=== PATIENT | male | born 1995 | race Two or more races ===

== ENCOUNTER 2016-06-22 16:10 | Inpatient (IN) | payer OTHER ==
[2016-06-22 16:15] VITALS: BMI 32.7
[2016-06-22] MEDS ORDERED: KETOROLAC TROMETHAMINE 30 MG/1 ML VIAL IVPUSH ONE ×2 (17:09→22:15)
[2016-06-22] MEDS ORDERED: SODIUM CHLORIDE 1,000 ML IV STA (17:09)
[2016-06-22] MEDS ORDERED: KETOROLAC TROMETHAMINE 30 MG/1 ML VIAL ONE (17:14)
[2016-06-22 17:36] LABS: BASOPHIL 0.7 % (0-2.0); EOSINOPHIL 0.4 % (0-4.5); MCHC 32.5 g/dl (32.0-35.9); MEAN CELL VOLUME 86.3 fl (80-96); MEAN PLT VOLUME 7.3 fl (7.5-11.1); NEUTROPHILS 80.3 % (42.8-82.8); PLATELET COUNT 345 K/MM3 (134-434); RDW 13.4 % (11.9-15.9); WHITE BLOOD COUNT 17.2 K/mm3 (4.0-10.0)
--- NOTE | 2016-06-22 17:48 | PDOC ---
History of Present Illness - General Chief Complaint: Pain Stated Complaint: STOMACH PAIN Time Seen by Provider: 06/22/16 16:57 History Source: Patient - History of Present Illness Travel History: No Initial Comments: 06/22/16 17:28 21-year-old male presents to the ED with complaints of generalized abdominal cramping without fever, chills, nausea vomiting diarrhea or dysuria. Patient states pain began this morning and is greater in the lower quadrants. Patient states had a bowel movement today with no relief of discomfort. Patient denies recent travel, recent illness, recent sick contacts, drug use, alcohol use, or GI disorders. Timing/Duration: reports: constant Quality: reports: moderate, cramping Abdominal Pain Onset Location: reports: RLQ, LLQ Pain Radiation: reports: epigastric Activities at Onset: reports: none Aggravating Factors: improves with: None Alleviating Factors: improves with: None Past History - Past Medical History Allergies/Adverse Reactions: Allergies Allergy/AdvReac Type Severity Reaction Status Date / Time No Known Allergies Allergy Verified 06/22/16 16:15 Home Medications: Ambulatory Orders Oxycodone HCl/Acetaminophen [Percocet 5-325 mg Tablet] 1 tab PO Q4H PRN #30 tablet MDD 6 tabs 06/23/16 Other medical history: denies - Psycho/Social/Smoking Cessation Hx Suicidal Ideation: No Smoking History: Never smoked Information on smoking cessation initiated: No Hx Alcohol Use: No Drug/Substance Use Hx: No Substance Use Type: None Patient Lives Alone: No Lives with/in: parents Review of Systems - Review of Systems Able to Perform ROS?: Yes Constitutional: No: Symptoms Reported HEENTM: No: Symptoms Reported Respiratory: No: Symptoms reported Cardiac (ROS): No: Symptoms Reported ABD/GI: Yes: Abdominal cramping : No: Symptoms Reported Musculoskeletal: No: Symptoms Reported Integumentary: No: Symptoms Reported Neurological: No: Symptoms reported Hematologic/Lymphatic: No: Symptoms Reported *Physical Exam - Vital Signs Last Vital Signs Temp Pulse Resp BP Pulse Ox 97.9 F 80 18 144/79 97 06/22/16 16:13 06/22/16 16:13 06/22/16 16:13 06/22/16 16:13 06/22/16 16:13 - Physical Exam General Appearance: Yes: Nourished, Appropriately Dressed. No: Apparent Distress HEENT: negative: Pale Conjunctivae Neck: positive: Supple Respiratory/Chest: positive: Lungs Clear, Normal Breath Sounds. negative: Respiratory Distress, Accessory Muscle Use Cardiovascular: positive: Regular Rhythm, Regular Rate. negative: Murmur Gastrointestinal/Abdominal: positive: Normal Bowel Sounds, Soft, Tenderness (rt lower quadrant and left lower quadrant). negative: Distended, Guarding, Rebound Musculoskeletal: negative: CVA Tenderness Extremity: positive: Normal Capillary Refill Integumentary: positive: Normal Color, Warm, Moist Neurologic: positive: Motor Strength 5/5 (ambulatory) ED Treatment Course - LABORATORY CBC & Chemistry Diagram: 06/23/16 07:00 06/23/16 07:00 - ADDITIONAL ORDERS Additional order review: 06/22/16 17:22 RBC 5.57 MCV 86.3 MCHC 32.5 RDW 13.4 MPV 7.3 L Neutrophils % 80.3 Lymphocytes % 12.2 Monocytes % 6.4 Eosinophils % 0.4 Basophils % 0.7 - Medications Given in the ED: ED Medications Discontinued Medications Generic Name Dose Route Start Last Admin Trade Name Freq PRN Reason Stop Dose Admin Ketorolac Tromethamine 30 mg 06/22/16 17:09 06/22/16 17:25 Toradol Injection - IVPUSH 06/22/16 17:10 30 mg ONCE ONE Administration Medical Decision Making - Medical Decision Making 06/22/16 17:50 Patient with 2 days of lower abdominal cramping without associated symptoms such as diarrhea dysuria nausea, diarrhea, or fever. Patient examined lower quadrant tenderness but negative for psoas, obturator sign and rosving. To patient's focality of discomfort patient has been ordered for CBC, comp, lactic acid, lipase, urine and IV fluids with Toradol. Depending on labs and reexam patient may have imaging including a CT *DC/Admit/Observation/Transfer Diagnosis at time of Disposition: Acute appendicitis - Discharge Dispostion Condition at time of disposition: Improved - Prescriptions
[2016-06-22 18:02] LABS: ALBUMIN 4.9 g/dl (3.4-5.0); ANION GAP 10 (8-16); CALCIUM 9.7 mg/dL (8.5-10.1); CO2 27 mmol/L (21-32); CREATININE 1.1 mg/dL (0.7-1.3); GLUCOSE,RANDOM 85 mg/dL (74-106); SGOT/AST 29 U/L (15-37); SGPT/ALT 48 U/L (12-78)
[2016-06-22 18:05] LABS: ALK PHOS 86 U/L (45-117); BILIRUBIN,TOTAL 0.8 mg/dL (0.2-1.0); TOT PROT 8.3 g/dl (6.4-8.2)
--- NOTE | 2016-06-22 18:33 | PDOC ---
*Physical Exam - Vital Signs Last Vital Signs Temp Pulse Resp BP Pulse Ox 97.9 F 80 18 144/79 97 06/22/16 16:13 06/22/16 16:13 06/22/16 16:13 06/22/16 16:13 06/22/16 16:13 - Physical Exam Comments: 06/22/16 18:32 Afebrile. Soft and nondistended. Lower abdominal discomfort to palpation greatest in the right lower quadrant, some rebound but no guarding. ED Treatment Course - LABORATORY CBC & Chemistry Diagram: 06/22/16 17:22 06/22/16 17:22 - ADDITIONAL ORDERS Additional order review: Laboratory Results 06/22/16 06/22/16 17:22 17:22 Sodium 139 Potassium 4.3 Chloride 102 Carbon Dioxide 27 Anion Gap 10 BUN 14 Creatinine 1.1 Creat Clearance w eGFR > 60 Random Glucose 85 Lactic Acid 1.078 Calcium 9.7 Total Bilirubin 0.8 AST 29 ALT 48 Alkaline Phosphatase 86 Total Protein 8.3 H Albumin 4.9 Lipase 72 L 06/22/16 17:22 RBC 5.57 MCV 86.3 MCHC 32.5 RDW 13.4 MPV 7.3 L Neutrophils % 80.3 Lymphocytes % 12.2 Monocytes % 6.4 Eosinophils % 0.4 Basophils % 0.7 - Medications Given in the ED: ED Medications Discontinued Medications Generic Name Dose Route Start Last Admin Trade Name Freq PRN Reason Stop Dose Admin Sodium Chloride 1,000 mls @ 1,000 mls/hr 06/22/16 17:09 06/22/16 17:25 Normal Saline - IV 06/22/16 18:08 1,000 mls/hr ASDIR STA Administration Ketorolac Tromethamine 30 mg 06/22/16 17:09 06/22/16 17:25 Toradol Injection - IVPUSH 06/22/16 17:10 30 mg ONCE ONE Administration Medical Decision Making - Medical Decision Making 06/22/16 18:32 Patient seen and evaluated with the nurse practitioner. I agree with the overall evaluation, assessment, and management with the following summary of visit: 21-year-old male with persistent lower abdominal pain since 3 AM, no associated fever/nausea/vomiting/diarrhea/urinary complaints. Exam localized somewhat to the right lower quadrant, leukocytosis of 17. Will check CTAP to rule out appendicitis/diverticulitis/colitis, agree with remainder of management as outlined. *DC/Admit/Observation/Transfer Diagnosis at time of Disposition: Acute appendicitis Qualifiers: Acute appendicitis type: unspecified acute appendicitis type Qualified Code(s) : K35.80 - Unspecified acute appendicitis - Discharge Dispostion Condition at time of disposition: Guarded
[2016-06-22 18:44] LABS: URINE APPEARANCE CLOUDY; URINE BILIRUBIN NEGATIVE (NEGATIVE); URINE BLOOD 1+ (NEGATIVE); URINE COLOR YELLOW; URINE GLUCOSE (UA) NEGATIVE (NEGATIVE); URINE KETONE NEGATIVE (NEGATIVE); URINE LEUK ESTERASE NEGATIVE (NEGATIVE); URINE NITRITE NEGATIVE (NEGATIVE); URINE PROTEIN 1+ (NEGATIVE); URINE UROBILINOGEN NEGATIVE E.U./dl (0.2-1.0)
[2016-06-22 18:48] LABS: URINE BACTERIA RARE /hpf (NONE SEEN); URINE MUCUS MODERATE; URINE RBC 8 /hpf (0-3); URINE WBC 2 /hpf (3-5)
[2016-06-22] MEDS ORDERED: CEFAZOLIN 1 GM/D5W 50 ML IVPB ONE (20:04)
[2016-06-22] MEDS ORDERED: CEFAZOLIN (PRE-DOCKED) 50 ML IVPB ONE (20:08)
--- NOTE | 2016-06-22 20:12 | PDOC ---
*Physical Exam - Vital Signs Last Vital Signs Temp Pulse Resp BP Pulse Ox 97.9 F 80 18 144/79 97 06/22/16 16:13 06/22/16 16:13 06/22/16 16:13 06/22/16 16:13 06/22/16 16:13 ED Treatment Course - LABORATORY CBC & Chemistry Diagram: 06/22/16 17:22 06/22/16 17:22 - ADDITIONAL ORDERS Additional order review: Laboratory Results 06/22/16 06/22/16 06/22/16 17:22 17:22 17:10 Sodium 139 Potassium 4.3 Chloride 102 Carbon Dioxide 27 Anion Gap 10 BUN 14 Creatinine 1.1 Creat Clearance w eGFR > 60 Random Glucose 85 Lactic Acid 1.078 Calcium 9.7 Total Bilirubin 0.8 AST 29 ALT 48 Alkaline Phosphatase 86 Total Protein 8.3 H Albumin 4.9 Lipase 72 L Urine Color Yellow Urine Appearance Cloudy Urine pH 5.0 Ur Specific [place] 1.027 Urine Protein 1+ H Urine Glucose (UA) Negative Urine Ketones Negative Urine Blood 1+ H Urine Nitrite Negative Urine Bilirubin Negative Urine Urobilinogen Negative Ur Leukocyte Esterase Negative Urine RBC 8 Urine WBC 2 Urine Bacteria Rare Urine Mucus Moderate 06/22/16 17:22 RBC 5.57 MCV 86.3 MCHC 32.5 RDW 13.4 MPV 7.3 L Neutrophils % 80.3 Lymphocytes % 12.2 Monocytes % 6.4 Eosinophils % 0.4 Basophils % 0.7 - RADIOLOGY Radiograph Interpretation: 06/22/16 20:10 COMPARISON: None Findings: Moderate hepatosplenomegaly. The gallbladder, pancreas, and adrenal glands are unremarkable. No renal or urinary calculi. No AAA. *Dilatation of the appendix measuring up to 14 mm in diameter with appendicoliths and subtle edema, compatible with appendicitis. No evidence for perforation or abscess at this time. No evidence for acute diverticulitis, small bowel obstruction, free pelvic fluid , or free air. THIS DOCUMENT HAS BEEN ELECTRONICALLY SIGNED Chilo Harden MD - Medications Given in the ED: ED Medications Discontinued Medications Generic Name Dose Route Start Last Admin Trade Name Freq PRN Reason Stop Dose Admin Sodium Chloride 1,000 mls @ 1,000 mls/hr 06/22/16 17:09 06/22/16 17:25 Normal Saline - IV 06/22/16 18:08 1,000 mls/hr ASDIR STA Administration Ketorolac Tromethamine 30 mg 06/22/16 17:09 06/22/16 17:25 Toradol Injection - IVPUSH 06/22/16 17:10 30 mg ONCE ONE Administration Medical Decision Making - Medical Decision Making 06/22/16 20:00: Spoke to Dr. Murillo/Surgery wound care center consultant [phone] Will bring to the OR in the am/ pt is stable Req that we admit to Hospitalist Anc 1gm ordered Hospitalist called *DC/Admit/Observation/Transfer Diagnosis at time of Disposition: Acute appendicitis Qualifiers: Acute appendicitis type: unspecified acute appendicitis type Qualified Code(s) : K35.80 - Unspecified acute appendicitis - Discharge Dispostion Condition at time of disposition: Guarded Admit: Yes
--- NOTE | 2016-06-22 21:45 | HP ---
CHIEF COMPLAINT:"my stomach is killing me" PCP: unknown HISTORY OF PRESENT ILLNESS: This is a previously healthy 21 yo M with no PMH, who presents to ED due to new onset abdominal pain. Patient states that he woke up at 3 am from severe 9/10, sharp, diffuse abdominal pain, that is worse in the RLQ and had no aggravating or alleviating factors. He has never had this pain before. He has not been able to eat but tolerated some liquids. His last BM was today and was normal, brown, nonmelenous, w/o blood. He denies f/c, n/v, diarrhea, constipation, h/a, chest pain or sob. 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 Smoking: denies Alcohol: 1 drink/week Drugs: denies Family History: htn, hld Allergies No Known Allergies Allergy (Verified 06/22/16 16:15) HOME MEDICATIONS: Medication Instructions Recorded NK [No Known Home Medication] 06/22/16 REVIEW OF SYSTEMS CONSTITUTIONAL: Absent: fever, chills, diaphoresis, generalized weakness, malaise HEENT: Absent: difficulty swallowing, mouth swelling CARDIOVASCULAR: Absent: chest pain, syncope, palpitations, lightheadedness, peripheral edema RESPIRATORY: Absent: cough, shortness of breath GASTROINTESTINAL: Absent: nausea, vomiting, diarrhea, constipation, melena, hematochezia GENITOURINARY: Absent: dysuria MUSCULOSKELETAL: Absent: back pain, neck pain SKIN: Absent: rash, itching HEMATOLOGIC/IMMUNOLOGIC: Absent: easy bleeding, easy bruising, frequent infections ENDOCRINE: Absent: unexplained weight gain, unexplained weight loss NEUROLOGIC: Absent: headache, focal weakness or paresthesias, mental status changes PSYCHIATRIC: Absent: anxiety, depression PHYSICAL EXAMINATION Vital Signs - 24 hr 06/22/16 06/22/16 16:13 20:31 Temperature 97.9 F Pulse Rate 80 Pulse Rate [ 63 Radial] Respiratory 18 18 Rate Blood Pressure 144/79 Blood Pressure 126/59 [Left Arm] O2 Sat by Pulse 97 100 Oximetry (%) GENERAL: Awake, alert, and fully oriented, in no acute distress. HEAD: Normal with no signs of trauma. EYES: Pupils equal, round and reactive to light, extraocular movements intact, sclera anicteric, conjunctiva clear. EARS, NOSE, THROAT: Moist mucous membranes. NECK: supple without lymphadenopathy, JVD, or masses. LUNGS: Breath sounds equal, clear to auscultation bilaterally. HEART: Regular rate and rhythm, normal S1 and S2 ABDOMEN: soft, diffusely tender, + rovsing + mcburneys, no guarding MUSCULOSKELETAL: No CVA tenderness. UPPER EXTREMITIES: 2+ pulses, warm, well-perfused. No peripheral edema. LOWER EXTREMITIES: 2+ pulses, warm, well-perfused. No calf tenderness. No peripheral edema. NEUROLOGICAL: Cranial nerves II-XII grossly intact. Normal speech. PSYCHIATRIC: Cooperative. Good eye contact. Appropriate mood and affect. SKIN: Warm, dry Laboratory Results - last 24 hr 06/22/16 06/22/16 06/22/16 17:10 17:22 17:22 WBC 17.2 H RBC 5.57 Hgb 15.6 Hct 48.1 MCV 86.3 MCHC 32.5 RDW 13.4 Plt Count 345 MPV 7.3 L Neutrophils % 80.3 Lymphocytes % 12.2 Monocytes % 6.4 Eosinophils % 0.4 Basophils % 0.7 Sodium 139 Potassium 4.3 Chloride 102 Carbon Dioxide 27 Anion Gap 10 BUN 14 Creatinine 1.1 Creat Clearance w eGFR > 60 Random Glucose 85 Lactic Acid Calcium 9.7 Total Bilirubin 0.8 AST 29 ALT 48 Alkaline Phosphatase 86 Total Protein 8.3 H Albumin 4.9 Lipase 72 L Urine Color Yellow Urine Appearance Cloudy Urine pH 5.0 Ur Specific [place] 1.027 Urine Protein 1+ H Urine Glucose (UA) Negative Urine Ketones Negative Urine Blood 1+ H Urine Nitrite Negative Urine Bilirubin Negative Urine Urobilinogen Negative Ur Leukocyte Esterase Negative Urine RBC 8 Urine WBC 2 Urine Bacteria Rare Urine Mucus Moderate 06/22/16 17:22 WBC RBC Hgb Hct MCV MCHC RDW Plt Count MPV Neutrophils % Lymphocytes % Monocytes % Eosinophils % Basophils % Sodium Potassium Chloride Carbon Dioxide Anion Gap BUN Creatinine Creat Clearance w eGFR Random Glucose Lactic Acid 1.078 Calcium Total Bilirubin AST ALT Alkaline Phosphatase Total Protein Albumin Lipase Urine Color Urine Appearance Urine pH Ur Specific [place] Urine Protein Urine Glucose (UA) Urine Ketones Urine Blood Urine Nitrite Urine Bilirubin Urine Urobilinogen Ur Leukocyte Esterase Urine RBC Urine WBC Urine Bacteria Urine Mucus ASSESSMENT/PLAN: This is a previously healthy 21 yo M with no PMH, who presents to ED due to new onset abdominal pain. CT abd: acute appendicitis w/o evidence of abscess or rupture Acute appendicitis w/o evidence or rupture or abscess -no sepsis -leukocytosis 17.2 -hepatic panel wnl -IV hydration -s/p cefazolin in ED; start on Rocephin, flagyl -NPO -type/screen -PT/INR -AM labs -surgery on board; possible lap appe tomorrow AM -morphine 2 gm PRN pain management FEN LR @ 125 lytes stable DVT GI PPH: hold a/c p/d possible cassie; SCD, early amb, PPI IV NPO Dispo: admit to med surge Problem List - Problem (1) Acute appendicitis Code(s): K35.80 - UNSPECIFIED ACUTE APPENDICITIS Qualifiers: Acute appendicitis type: unspecified acute appendicitis type Qualified Code(s): K35.80 - Unspecified acute appendicitis (2) Lower abdominal pain Code(s): R10.30 - LOWER ABDOMINAL PAIN, UNSPECIFIED Visit type - Emergency Visit Emergency Visit: Yes ED Registration Date: 06/22/16 Care time: The patient presented to the Emergency Department on the above date and was hospitalized for further evaluation of their emergent condition. - New Patient This patient is new to me today: Yes Date on this admission: 06/23/16 - Critical Care Critical Care patient: No
--- NOTE | 2016-06-22 21:50 | PN ---
<SaraAyush - Last Filed: 06/22/16 21:50> Teaching Attending Note ATTENDING PHYSICIAN STATEMENT I saw and evaluated the patient. I reviewed the resident's note and discussed the case with the resident. I agree with the resident's findings and plan as documented. SUBJECTIVE: OBJECTIVE: ASSESSMENT AND PLAN: <Joshua Padgett - Last Filed: 06/23/16 00:13> Teaching Attending Note Name of Resident: Sindy Bonds ATTENDING PHYSICIAN STATEMENT I saw and evaluated the patient. I reviewed the resident's note and discussed the case with the resident. I agree with the resident's findings and plan as documented. SUBJECTIVE: 21 year old male, with past medical history of kidney stones, who presents to the ED with generalized abdominal pain, with more severity in the right lower quadrant for 1 days, rates it a 10/10 in severity which decreased to 2/10 after pain medications. Denies any fevers, diarrhea, cough, dysuria, back pain, nausea or vomiting. He notes that he has not been able to eat all day. He also notes that he was able to ambulate. OBJECTIVE: Vitals: Afebrile Heart rate: 80 bpm BP: 126/59 GENERAL: Awake, alert, and fully oriented, in no acute distress HEENT: Atraumatic. PERRLA, EOMI. Moist mucosa. No JVD LUNGS: No distress, speaks full sentences, clear to auscultation bilaterally HEART: Regular rate and rhythm, normal S1 and S2, no murmurs, rubs or gallops, peripheral pulses normal and equal bilaterally. ABDOMEN: +Right lower quadrant tenderness. Positive rebound. Soft, decreased bowel sounds. No masses. EXTREMITIES: Normal inspection, Normal range of motion, no edema. No clubbing or cyanosis. NEUROLOGICAL: Normal speech SKIN: Warm, Dry, normal turgor, no rashes or lesions noted. CBCD WBC 17.2 K/mm3 (4.0-10.0) H 06/22/16 17:22 RBC 5.57 M/mm3 (4.00-5.60) 06/22/16 17:22 Hgb 15.6 GM/dL (11.7-16.9) 06/22/16 17:22 Hct 48.1 % (35.4-49) 06/22/16 17:22 MCV 86.3 fl (80-96) 06/22/16 17:22 MCHC 32.5 g/dl (32.0-35.9) 06/22/16 17:22 RDW 13.4 % (11.9-15.9) 06/22/16 17:22 Plt Count 345 K/MM3 (134-434) 06/22/16 17:22 MPV 7.3 fl (7.5-11.1) L 06/22/16 17:22 CMP Sodium 139 mmol/L (136-145) 06/22/16 17:22 Potassium 4.3 mmol/L (3.5-5.1) 06/22/16 17:22 Chloride 102 mmol/L (98-107) 06/22/16 17:22 Carbon Dioxide 27 mmol/L (21-32) 06/22/16 17:22 Anion Gap 10 (8-16) 06/22/16 17:22 BUN 14 mg/dL (7-18) 06/22/16 17:22 Creatinine 1.1 mg/dL (0.7-1.3) 06/22/16 17:22 Creat Clearance w eGFR > 60 (>60) 06/22/16 17:22 Calcium 9.7 mg/dL (8.5-10.1) 06/22/16 17:22 Total Bilirubin 0.8 mg/dL (0.2-1.0) 06/22/16 17:22 AST 29 U/L (15-37) 06/22/16 17:22 ALT 48 U/L (12-78) 06/22/16 17:22 Alkaline Phosphatase 86 U/L (45-117) 06/22/16 17:22 Total Protein 8.3 g/dl (6.4-8.2) H 06/22/16 17:22 Albumin 4.9 g/dl (3.4-5.0) 06/22/16 17:22 CT abdomen and pelvis with contrast Impression: Moderate hepatosplenomegaly. The gallbladder, pancreas, and adrenal glands are unremarkable. No renal or urinary calculi. No AAA. *Dilatation of the appendix measuring up to 14 mm in diameter with appendicoliths and subtle edema, compatible with appendicitis. No evidence for perforation or abscess at this time. No evidence for acute diverticulitis, small bowel obstruction, free pelvic fluid, or free air. ASSESSMENT AND PLAN: 1. Acute appendicitis, without evidence of perforation or abscess, with leukocytosis - IVF hydration - NPO - Pain control 2 mg morphine Q6 hours PRN - 2 sets of blood cultures - IV antibiotics; Ceftriaxone 2 grams Q 24 hours, metronidazole 50 mg Q 8 hours IV - Surgery follow up in the AM for possible intervention DVT prophylaxis low risk of DVT, can ambulate for DVT prophylaxis Documentation prepared by Joshua Padgett, acting as medical physics professor for Ayush Ruiz MD.
[2016-06-22] MEDS ORDERED: LACTATED RINGERS SOLUTION 1,000 ML IV SCH (22:15)
[2016-06-22] MEDS ORDERED: morphine CARPU-JECT 2 MG/1 ML DISP.SYRIN IVPUSH PRN (22:26)
[2016-06-22] MEDS ORDERED: CEFTRIAXONE 100 ML IVPB ONE (23:44)
[2016-06-23] MEDS: METRONIDAZOLE 500 MG PREMIXED 100 ML IVPB SCH ×3 (00:51→11:29)
[2016-06-23] MEDS: morphine CARPU-JECT 2 MG/1 ML DISP.SYRIN IVPUSH PRN ×2 (01:44→05:52)
[2016-06-23 01:49] LABS: INR 1.17 (0.82-1.09); PROTHROMBIN TIME (PATIENT) 12.9 SEC (9.98-11.88)
[2016-06-23] MEDS ORDERED: morphine CARPU-JECT 2 MG/1 ML DISP.SYRIN IVPUSH ONE (03:59)
[2016-06-23] MEDS ORDERED: CEFTRIAXONE 100 ML IVPB ONE (05:00)
[2016-06-23 08:09] LABS: MCH 29.4 pg (25.7-33.7); MCHC 33.9 g/dl (32.0-35.9); MEAN CELL VOLUME 86.5 fl (80-96); MEAN PLT VOLUME 7.1 fl (7.5-11.1); PLATELET COUNT 294 K/MM3 (134-434); RDW 13.4 % (11.9-15.9); WHITE BLOOD COUNT 17.5 K/mm3 (4.0-10.0)
[2016-06-23 08:31] LABS: ALBUMIN 4.3 g/dl (3.4-5.0); ANION GAP 8 (8-16); CALCIUM 9.2 mg/dL (8.5-10.1); CO2 27 mmol/L (21-32); GLUCOSE,RANDOM 99 mg/dL (74-106)
[2016-06-23] MEDS ORDERED: BUPIVACAINE HCL/PF 0.5% (5MG/ML) 10 ML VIAL ONE (08:33)
[2016-06-23] MEDS ORDERED: HYDROmorphone HCL CARPU-JECT 2 MG/1 ML DISP.SYRIN IVPUSH PRN (08:34)
[2016-06-23] MEDS ORDERED: ONDANSETRON 4 MG/2 ML VIAL IVPUSH PRN ×2 (08:34→10:18)
[2016-06-23 08:35] LABS: ALK PHOS 83 U/L (45-117); BILIRUBIN,TOTAL 1.1 mg/dL (0.2-1.0); CREATININE 1.1 mg/dL (0.7-1.3); PHOSPHOROUS 2.8 mg/dL (2.5-4.9); SGOT/AST 18 U/L (15-37); SGPT/ALT 37 U/L (12-78); TOT PROT 7.4 g/dl (6.4-8.2)
[2016-06-23] MEDS ORDERED: MIDAZOLAM HCL 2 MG/2 ML SINGLE DOSE VIAL ONE (08:40)
[2016-06-23] MEDS ORDERED: LIDOCAINE HCL/PF 2% SDV 5ML VIAL ONE (08:41)
[2016-06-23] MEDS ORDERED: PROPOFOL 20 ML ONE (08:41)
[2016-06-23] MEDS ORDERED: ROCURONIUM BROMIDE 50 MG/5 ML VIAL ONE (08:42)
[2016-06-23] MEDS ORDERED: DEXAMETHASONE SOD PHOSPHATE 4 MG/1 ML VIAL ONE ×2 (08:43→09:46)
[2016-06-23] MEDS ORDERED: BUPIVACAINE HCL/PF 0.5% (5MG/ML) 10 ML VIAL IJ ONE (09:45)
[2016-06-23] MEDS ORDERED: ONDANSETRON 4 MG/2 ML VIAL ONE (09:46)
[2016-06-23] MEDS ORDERED: NEOSTIGMINE METHYLSULFATE 0.5 MG/ML - 10 ML MDV ONE (09:48)
[2016-06-23] MEDS ORDERED: GLYCOPYRROLATE 0.2 MG/1 ML VIAL ONE (09:48)
--- NOTE | 2016-06-23 09:56 | CONSULT ---
Consult Consult Specialty:: surgery Reason for Consultation:: appendicitis - History of Present Illness Chief Complaint: rlq pain History of Present Illness: pt with rlq pain x 1 day. came to ER and workup reveals leukocytosis to [address] showing appendicitis. never had symptoms like this before. - History Source History Provided By: Patient Limitations to Obtaining History: No Limitations - Alcohol/Substance Use Hx Alcohol Use: No - Smoking History Smoking history: Current some day smoker Have you smoked in the past 12 months: Yes Home Medications - Allergies Allergies/Adverse Reactions: Allergies Allergy/AdvReac Type Severity Reaction Status Date / Time No Known Allergies Allergy Verified 06/22/16 16:15 - Home Medications Home Medications: Ambulatory Orders NK [No Known Home Medication] 06/22/16 Review of Systems - Review of Systems Constitutional: denies: Chills, Fever Eyes: denies: Blind Spots, Recent Change in Vision HENT: denies: Difficult Swallowing, Ear Discharge Neck: denies: Decreased ROM, Lumps Cardiovascular: denies: Chest Pain, Edema Respiratory: denies: Cough, Exercise Intolerance Gastrointestinal: reports: Abdominal Pain. denies: Melena Genitourinary: denies: Burning, Discharge Breasts: denies: Pain, Skin Changes Musculoskeletal: denies: Back Pain, Crepitus Integumentary: denies: Blister, Bruising Neurological: denies: Change in LOC, Change in Speech Endocrine: denies: Excessive Sweating, Flushing Hematology/Lymphatic: denies: Easily Bruised, Excessive Bleeding Psychiatric: denies: Altered Sleep Pattern, Anxiety Physical Exam Vital Signs: Vital Signs Temperature 98.8 F 06/23/16 06:24 Pulse Rate 88 06/23/16 06:24 Respiratory Rate 19 06/23/16 06:24 Blood Pressure 136/70 06/23/16 06:24 O2 Sat by Pulse Oximetry (%) 95 06/22/16 21:55 Constitutional: Yes: No Distress, Calm Eyes: Yes: Conjunctiva Clear, EOM Intact HENT: Yes: Atraumatic, Normocephalic Neck: Yes: Supple, Trachea Midline Cardiovascular: Yes: Regular Rate and Rhythm Respiratory: Yes: Regular, CTA Bilaterally Gastrointestinal: Yes: Soft, Tenderness (rlq with some guarding). No: Distention ...Rectal Exam: Yes: Deferred Renal/: No: CVA Tenderness - Left, CVA Tenderness - Right Breast(s): No: Mass, Nipple Inversion Musculoskeletal: No: Joint Stiffness, Joint Swelling Extremities: No: Calf Tenderness, Erythema Integumentary: No: Erythema, Rash Neurological: Yes: Alert, Oriented Psychiatric: Yes: Alert, Oriented Labs: CBC, BMP 06/23/16 07:00 06/23/16 07:00 Imaging - Results Cat Scan: Report Reviewed, Image Reviewed Problem List - Problems (1) Acute appendicitis Assessment/Plan: for lap appy. r/b/a d/w pt. he understands and agrees can likely go home with rx for percocet today if his pain controlled and he voids and tolerates liquids. f/u with me in 1-2 weeks [phone] no heavy lifting x 30 lbs x 3 weeks can shower tomorrow Code(s): K35.80 - UNSPECIFIED ACUTE APPENDICITIS Qualifiers: Acute appendicitis type: unspecified acute appendicitis type Qualified Code(s): K35.80 - Unspecified acute appendicitis
[2016-06-23] MEDS ORDERED: PANTOPRAZOLE 20 MG TABLET (FP) PO SCH (10:00)
[2016-06-23] MEDS ORDERED: PANTOPRAZOLE SODIUM 100 ML IVPB SCH (10:00)
[2016-06-23] MEDS ORDERED: OXYCODONE/APAP 5/325MG COMBO TABLET PO PRN ×3 (10:01→10:09)
[2016-06-23] MEDS ORDERED: LACTATED RINGERS SOLUTION 1,000 ML IV SCH (10:01)
--- NOTE | 2016-06-23 10:05 | OP ---
Operative Note - Note: Operative Date: 06/23/16 Pre-Operative Diagnosis: appendicitis Operation: lap appendectomy Findings: appendicits Post-Operative Diagnosis: Same as Pre-op Surgeon: Guero Lazar Anesthesia: General Estimated Blood Loss (mls): 5 Operative Report Dictated: Yes
[2016-06-23 11:26] VITALS: TEMP 99.1
[2016-06-23 11:39] VITALS: BP 139/77; PULSE 95
[2016-06-23] MEDS ORDERED: ACETAMINOPHEN 325 MG TABLET (FP) PO PRN ×2 (12:00→12:04)
[2016-06-23] MEDS ORDERED: oxyCODONE HCL 5 MG TABLET PO PRN ×2 (12:00→12:04)
--- NOTE | 2016-06-23 22:55 | OP ---
DATE OF OPERATION: 06/23/2016 PREOPERATIVE DIAGNOSIS: Appendicitis. POSTOPERATIVE DIAGNOSIS: Appendicitis. SURGERY: Laparoscopic appendectomy. SURGEON: Guero Lazar M.D. ANESTHESIA: He underwent general endotracheal anesthesia. ESTIMATED BLOOD LOSS: Minimal. OPERATIVE DETAILS: Patient was brought to the operating room after confirming name, date of , medical record number. He had just voided approximately 10 minutes before the operation, and therefore Shaw catheter was not placed. He received appropriate perioperative antibiotics. He was then induced and intubated by the anesthesiologist. At this point, he was then prepped and draped in the usual sterile fashion. A timeout was then performed. A 1-inch supraumbilical incision was made, and I bluntly dissected down to his fascia. I used electrocautery to score his fascia, and then I lifted up his abdominal wall anteriorly. I then continued to go through the fascia, and then I grabbed his posterior sheath with a Arleen clamp. I then used Metzenbaum scissors to cut and then I used a Arleen clamp to go through his peritoneum bluntly. I then placed my finger inside his abdomen, to ensure no adhesions. Then I placed a 12-mm balloon and Jaramillo-type trocar inside the abdomen, insufflated the abdomen to a pressure of 15 mmHg. I then placed 5-mm trocar in the left lower quadrant and 1 in the suprapubic region, taking great care not to injure the bladder. Then the patient was placed in Trendelenburg position with right side up. I then used 2 blunt graspers to gently dissect the appendix off the abdominal side wall. It was actually hidden, and it was tucked underneath the terminal ileum and after I was able to gently peel the terminal ileum off the appendix, I was able to see the appendix and of course down into the pelvis. Once I peeled the tip of the appendix off the sigmoid mesentery, I continued to mobilize it and get it towards the anterior abdominal wall. With the appendix completely free, I then used a [place] dissector to dissect the base of the appendix, and then I fired a blue load stapler at the base of the appendix. I then used a white load stapler to staple the mesentery of the appendix. I then placed it in a 10-mm specimen retrieval bag and sent if off the field for permanent examination. I then irrigated the incisions and staple lines and noted that there may have been a cuff of appendix, and therefore I continued to dissect the staple line of the appendix, and indeed there was a small cuff, and this was re-stapled at the base, taking great care not to go past the ileocecal valve with another blue load stapler. I then placed it in another 10-mm specimen retrieval bag and sent it off the field. I then re-irrigated the sutures lines, was more satisfied with how it looked, and insured hemostasis. I then aspirated out as much fluid as I could. I desufflated the abdomen, and then reapproximated the supraumbilical fascia with a [id number], 0 Vicryl suture. I then closed the skin and subcutaneous tissues with 4-0 Monocryl in a subcutaneous fashion. Dermabond was then applied to the skin. All counts were correct. GUERO LAZAR M.D. MICHELLE/[id number]
--- NOTE | 2016-06-25 12:39 | PATH ---
Surgical Pathology Report Patient Name: GEOVANNA LAU [facility]. Rec. #: [id number] /Age/Gender: 1995 (Age: 21) / M Account: [id number] Location: [address] [place] [address] Taken: 06/23/2016 Received: 06/24/2016 Reported: 06/25/2016 Physicians: Guero Lazar MD Specimen(s) Received APPENDIX Clinical History Appendicitis Final Diagnosis APPENDIX, APPENDECTOMY: ACUTE APPENDICITIS AND PERIAPPENDICITIS. Electronically Signed Tim Chaudhry M.D. Gross Description Received in formalin, labeled "appendix," is an 8 cm. in length vermiform appendix with a stapled margin of resection and moderate attached fat. The serosa is olivares-mon with focal attached exudate. Sectioning reveals a hemorrhagic lumen. The wall of the appendix averages 0.2 cm. in thickness. Senior It Assistant sections are submitted in one cassette. /06/24/201606/24/2016
== END 2016-06-23 12:46 | disposition home or self-care (01) | DRG 225 ==
LOC: JER 16:10 → JERBED 21:55 → J5S 22:03
PROVIDERS: ADMIT Surgery; ATTEND Internal Medicine
PROC: 0DTJ4ZZ Resection of Appendix, Percutaneous Endoscopic Approach (ICD-10-PCS; principal; 2016-06-23 08:30)
DX: K35.80 Unspecified acute appendicitis (principal)
CPT/HCPCS: 36415; 74177-TC; 80053; 81003; 81015; 83605; 83690; 83735; 84100; 85025; 85027; 85610; 86850; 86900; 86901; 87086; 88304-TC; 94760; 99283-25